=== PATIENT | female | born 1930 | race Caucasian/White ===

== ENCOUNTER 2017-12-27 11:10 | Inpatient (IN) | payer OTHER ==
[~2017-12-27] VITALS: Ht 165.1 cm; Wt 70.3 kg
[~2017-12-27 11:10] MED LIST: CALCIUM 600 +1 EAC1; CENTRUM SILVER1 EAC1; COUMADIN 5 MG TA5 M1 PO; COUMADIN 5 MG TA5 MG PO; DULCOLAX5 MG PO; ELIQUIS5 MG PO; ENOXAPARIN80 MG/0.1 SUBQ; HYDROCHLOROTHIA25 M1; IRON325 PO; KLOR-CON 1010 MEQ PO; LISINOPRIL40 MG; LOPERAMIDE 2 MG2 M1 PO; MELATONIN5 M1 PO; MILK OF MA2400 MG/10 PO; MIRALAX17 GM PO; MYLANTA PO; OXYGEN MISCELL; PHENERGAN 25 MG25 M1 PO; PRINIVIL40 MG PO; SENNA8.6 MG PO; TYLENOL325 MG PO; VALACYCLOVIR1000 MG PO; VITAMIN A & D113 G1; VITAMIN B-121000 MC3 PO; ZOFRAN ODT4 MG PO; [UNRECOGNIZED DRUG - OTHER]
[2017-12-27 11:37] LABS: ABSOLUTE BASOPHILS 0.2 thou/uL (0.0-0.2); ABSOLUTE EOSINOPHILS 0.1 thou/uL (0.0-0.7); ABSOLUTE LYMPHOCYTES 1.6 thou/uL (0.8-5.3); ABSOLUTE MONOCYTES 0.2 thou/uL (0.0-1.2); ABSOLUTE NEUTROPHILS 7.5 thou/uL (1.6-8.1); BASOPHILS 2.1 %; EOSINOPHILS 1.3 %; HEMATOCRIT 35.5 % (37.0-47.0); HEMOGLOBIN 10.9 gm/dL (12.0-15.0); LYMPHOCYTES 16.5 %; MCH 24.2 pg (26.0-34.0); MCHC 30.6 g/dL (28.0-37.0); MCV 79.1 fL (80.0-100.0); MONOCYTES 1.9 %; MPV 7.9 fl. (7.2-11.1); NUCLEATED RBCS 0 /100WBC; PLATELET COUNT* 612 thou/uL (150-400); POLYS 78.2 %; RBC 4.49 mil/uL (4.20-5.00); RDW-CV 20.4 % (10.5-14.5); WBC 9.6 thou/uL (4.0-11.0)
[2017-12-27 11:45] LABS: APTT 25.3 Seconds (25.0-31.3); INR 1.2; PROTIME 11.4 Seconds (9.20-11.50)
--- NOTE | 2017-12-27 11:50 | NUR ---
DR. UNDERWOOD IN TO SEE PT. PER DR. MOROCHO, CODE STROKE DC'D
[2017-12-27 11:53] LABS: ANION GAP 17 mmol/L (7-16); BUN 39 mg/dL (7-18); CALCIUM 9.2 mg/dL (8.5-10.1); CHLORIDE 100 mmol/L (98-107); CO2 18 mmol/L (21-32); CREATININE 2.2 mg/dL (0.6-1.3); GLUCOSE 263 mg/dL (70-99); POTASSIUM 5.3 mmol/L (3.5-5.1); SODIUM 135 mmol/L (136-145)
[2017-12-27 11:57] LABS: ALBUMIN 2.9 g/dL (3.4-5.0); ALKALINE PHOSPHATASE 99 U/L (46-116); SGOT 24 U/L (15-37); SGPT 22 U/L (30-65); TOTAL BILIRUBIN 0.2 mg/dL (<0.1-1.0); TOTAL PROTEIN 8.8 g/dL (6.4-8.2); TROPONIN-I LEVEL <0.06 ng/mL (<0.06)
[2017-12-27 12:07] LABS: HYPOCHROMASIA 2+; OVALOCYTES 1+; PLATELET ESTIMATE INCREASED
[2017-12-27 12:08] LABS: POIKILOCYTOSIS 1+
--- NOTE | 2017-12-27 12:40 | NUR ---
UNABLE TO INSERT URINARY CATH. WAITING FOR ARCHIVIST POLITICAL HISTORY TO BRING SMALLER CATHETER.
[2017-12-27 14:06] LABS: URINE BILIRUBIN NEGATIVE (Negative); URINE BLOOD NEGATIVE (Negative); URINE CLARITY CLEAR; URINE COLOR YELLOW; URINE GLUCOSE-RANDOM NEGATIVE (Negative); URINE KETONES NEGATIVE (Negative); URINE LEUKOCYTES-REFLEX NEGATIVE (Negative); URINE NITRITE-REFLEX NEGATIVE (Negative); URINE PROTEIN NEGATIVE (Negative); URINE SPECIFIC GRAVITY 1.025 (1.005-1.030); URINE UROBILINOGEN 0.2 E.U./dl (0.2-1.0)
[2017-12-27] MEDS ORDERED: SENEXON8.6 MG PO (14:46)
[2017-12-27] MEDS ORDERED: BACTRIM DS TAB1 EACH PO (14:47)
[2017-12-27 14:55] VITALS: BP 90/55
--- NOTE | 2017-12-27 15:00 | EKG ---
[place] [address] ELECTROCARDIOGRAM REPORT Name: NEALSHI Ying Room: [address] ADM IN [facility].#: [id number] Admission: 12/27/17 Attend Phys: Britton Valentine Discharge: Date of : 30 Report #: [id number] THIS REPORT FOR: //name// [facility] ED Test Date: 2017-12-27 Test Time: 11:38:53 Pat Name: SHI NEAL Department: Room: [facility] Gender: F Rn Procedures: Emily AVELAR : 1930 Requested By: Umair Hernandez Order Number: [id number] MD: Jovanny Graves Measurements Intervals [place] Rate: 115 P: 39 PA: 159 QRS: -40 QRSD: 85 T: 27 QT: 315 QTc: 436 Interpretive Statements Sinus tachycardia Left axis deviation Probable anteroseptal infarct, old Compared to ECG 09/26/2017 19:15:14 No significant changes Electronically Signed On 12-27-2017 14:59:55 CARD CLEANER by Jovanny Graves [email or web address] <ELECTRONICALLY SIGNED> By: Jovanny Graves MD, [facility] 12/27/17 1459 1138 [id number] Jovanny Graves MD, [facility] /EPI
[2017-12-27 15:44] LABS: CHOLESTEROL 216 mg/dL (<200); HDL CHOLESTEROL 49 mg/dL (>40); LDL CHOLESTEROL 141 mg/dL (<100); TC:HDL 4.4 Ratio (Not establshd); TRIGLYCERIDE 134 mg/dL (<150); VLDL 27 mg/dL (<40)
[2017-12-27 15:45] LABS: SERUM ASSESSMENT CLEAR
--- NOTE | 2017-12-27 16:38 | 2DMMODE ---
[place] [address] 2 D/M-MODE ECHOCARDIOGRAM Name: SHI NEAL Room: [address] IN [facility]#: [id number] Admission: 12/27/17 Attend Phys: Gurdeep Dodd Discharge: Date of : 30 Date of Service: 12/27/17 1637 Report #: [id number] THIS REPORT FOR: //name// APPROVED REPORT Study performed: 12/27/2017 15:37:29 EXAM: Comprehensive 2D, Doppler, and color-flow Echocardiogram Patient Location: In-Patient Room #: 224 Status: routine BSA: 1.81 HR: 95 bpm BP: 90/55 mmHg Rhythm: NSR Other Information Study Quality: Good Indications CVA/TIA Echo Enhancing Agent Indication: Rule out Shunt Agent(s) / Amount(s) Used: Agitated Saline 10 cc 2D Dimensions LVEF(%): 89.97 (>50%) IVSd: 15.97 (7-11mm) LVOT Diam: 19.43 (18-24mm) LVDd: 34.97 mm PWd: 10.97 (7-11mm) Ascending Ao: 33.80 (22-36mm) LVDs: 14.04 (25-40mm) Aortic Root: 27.64 mm Wilson's LVEF: 89.97 % Volumes Left Atrial Volume (Systole) LA ESV Index: 24.60 mL/m2 Aortic Valve AoV Peak Theodore.: 1.36 m/s AO Peak Gr.: 7.36 mmHg LVOT Max P.34 mmHg AO Mean Gr.: 3.96 mmHg LVOT Mean P.43 mmHg LVOT Max V: 1.26 m/s AO V2 VTI: 23.19 cm LVOT Mean V: 0.86 m/[place] [address] 2 D/M-MODE ECHOCARDIOGRAM Name: SHI NEAL Room: [address] IN .R.#: [id number] Admission: 12/27/17 Attend Phys: Gurdeep Dodd Discharge: Date of : 30 Date of Service: 12/27/17 1637 Report #: [id number] EUGENIO (VTI): 2.98 cm2 LVOT V1 VTI: 23.30 cm Mitral Valve E/A Ratio: 0.72 MV Decel. Time: 200.98 ms MV E Max Theodore.: 0.62 m/s MV PHT: 58.28 ms MVA (PHT): 3.77 cm2 TDI E/Lateral E': 10.33 E/Medial E': 8.86 Medial E' Theodore.: 0.07 m/s Lateral E' Theodore.: 0.06 m/s Pulmonary Valve PV Peak Theodore.: 0.83 m/s PV Peak Gr.: 2.74 mmHg Tricuspid Valve TR Peak Gr.: 22.49 mmHg RVSP: 27.00 mmHg Left Ventricle The left ventricle is normal size. There is normal LV segmental wall motion. Mild basal septal hypertrophy is present. Left ventricular systolic function is normal. LVEF is 65-70%. Grade I - abnormal relaxation pattern. Right Ventricle The right ventricle is normal size. The right ventricular systolic function is normal. Atria Left atrium is mildly dilated. Interatrial septum is intact without evidence of ASD or PFO. The right atrium size is normal. Aortic Valve The Aortic valve is mildly sclerotic. No aortic regurgitation is present. There is no aortic valvular stenosis. Mitral Valve The mitral valve is normal in structure. Trace mitral regurgitation. No evidence of mitral valve stenosis. Tricuspid Valve The tricuspid valve is normal in structure. Trace tricuspid regurgitation. The RVSP is ___27____ [place] [address] 2 D/M-MODE ECHOCARDIOGRAM Name: SHI NEAL Room: [address] IN M.R.#: [id number] Admission: 12/27/17 Attend Phys: Gurdeep Dodd Discharge: Date of : 30 Date of Service: 12/27/17 1637 Report #: [id number] Pulmonic Valve The pulmonary valve is normal in structure. There is no pulmonic valvular regurgitation. Great Vessels The aortic root is normal in size. IVC is normal in size and collapses with >50% inspiration Pericardium There is no pericardial effusion. <Conclusion> Normal echocardiogram. The left ventricle is normal size. Mild basal septal hypertrophy is present. Left ventricular systolic function is normal. LVEF is 65-70%. Grade I - abnormal relaxation pattern. Left atrium is mildly dilated. The Aortic valve is mildly sclerotic. Trace tricuspid regurgitation. The RVSP is ___27____ mmHg. Interatrial septum is intact without evidence of ASD or PFO. <ELECTRONICALLY SIGNED> By: Elvin Saunders MD, FACC 12/27/17 1637 [id number] [phone] Elvin Saunders MD, FACC /INF
[2017-12-27] MEDS ORDERED: SANTYL OINTMENT30 G1 TP (18:04)
[2017-12-27 20:00] VITALS: BP 105/43
[2017-12-28] VITALS: BP 100/52
[2017-12-28 04:00] VITALS: BP 123/45
--- NOTE | 2017-12-28 04:08 | NUR ---
ASSUMED PT CARE AT 1930, PT IS A&O TO SELF PT IS MOSTLY NON VERBAL BUT WILL ANSWER TO YES AND NO QUESTIONS. PT IS TRACING NSR ON THE MONITOR, PT IS ON 4L NC PT HAS IVF INFUSING PER MAR. PT HAS A LOVE TO DD, DRAINING YELLOW URINE. PT SLEPT WELL THORUGHOUT THE NIGHT, PT IS INCONTINENT OF STOOL. HAD 2 BM THIS SHIFT. PT HAS SEVERAL WOUNDS THAT WERE DRESSED BY THE DAY RN. PT IS NOT IN ANY APPARENT PAIN. BED IN LOW POSITION, CALL LIGHT IN REACH, BED ALARM ON, YELLOW ARM BAND AND SOCKS IN PLACE. HOURLY ROUNDING COMPLETED FOR PT SAFETY.
[2017-12-28 08:00] VITALS: BP 121/67
[2017-12-28 10:08] LABS: MAGNESIUM 2.2 mg/dL (1.8-2.4); PHOSPHORUS* 3.6 mg/dL (2.5-4.9)
[2017-12-28 12:02] VITALS: BP 120/61
--- NOTE | 2017-12-28 13:41 | NUR ---
Pt was sound asleep when CM went to assess, will f/u later
--- NOTE | 2017-12-28 15:40 | NUR ---
CM was able to speak with Holli from [facility]. Pt is a LTC resident at [facility] and they can accept Pt back at [facility]. Son is supportive and involved in POC. Pt is normally A&Ox1, but can answer simple questions.
[2017-12-28 16:00] VITALS: BP 141/57
--- NOTE | 2017-12-28 16:12 | NUR ---
WOUND CARE NOTE: CONSULT RECEIVED FOR ESCHAR BOGGY HEELS LEFT TOP OF FOOT WOUND. PATIENT PRESENTS WITH MULTIPLE AREAS OF BREAKDOWN TO HER FEET. RIGHT HEEL: UNSTAGEBALE PRESSURE ULCER MEASURING 3.5X4X0.1. 95% UNSTABLE BLACK, DRY ESCHAR; 5% YELLOW, MOIST TISSUE. SETH-WOUND WITH REDNESS. HEEL IS BOGGY. CLEANSED WOUND WITH WOUND CLEANSER, PATTED DRY. APPLIED OPTIFOAM AG AND SECURED WITH KERLIX. LEFT HEEL: DEEP TISSUE INJURY WITH BLISTERING MEASURING 2.1X5. MAROON DISCOLORED TISSUE. SETH-WOUND WITH ERYTHEMA. CLEANSED WITH WOUND CLEANSER, PATTED DRY. NO EVIDENCE OF DRAINAGE NOTED. PAINTED WITH BETADINE AND ALLOWED TO DRY. LEFT FOOT, DORSAL ASPECT: STAGE 4 PRESSURE ULCER MEASURING 3.5X6X0.2. 50% RED, MOIST, NON-GRANULAR TISSUE; 50% YELLOW SLOUGH TISSUE. TENDON IS PRESENT IN CENTER OF WOUND BED. SETH-WOUND WITH ERYTHEMA. CLEANSED WOUND WITH WOUND CLEANSER, PATTED DRY. APPLIED AQUACEL AG AND COVERED WITH ABD. SECURED WITH KERLIX. LEFT 1ST METATARSAL HEAD: DEEP TISSUE INJURY MEASURING 0.5X1.5; PURPLE DISCOLORATION. SETH-WOUND INTACT. AREA WAS CLEANSED WITH WOUND CLEANSER, PATTED DRY. PAINTED WITH BETADINE. PATIENT INCONTINENT OF STOOL, ASSISTED WITH CLEANSING AND PLACING NEW CHUX. CONTUSIONS PRESENT TO LEFT BUTTOCK-APPLIED BARRIER OINTMENT. EDUCATED PATIENT ON IMPORTANCE OF KEEPING HEELS UP OFF BED, BUT PATIENT DOES NOT RESPOND OR VERBALIZE UNDERSTANDING. RECOMMEND KEEP HEELS OFF BED TURN Q2 HOURS LIMIT LAYERS OF LINEN UNDER PATIENT LIMIT HOB <30 DEGREES IF SHE CAN TOLERATE CONSULT WOUND PHYSICIAN FOLLOW UP IN WOUND CENTER UPON DISCHARGE
[2017-12-28 16:29] LABS: HEMATOCRIT 23.9 % (37.0-47.0); MCH 24.1 pg (26.0-34.0); MCHC 31.2 g/dL (28.0-37.0); MCV 77.2 fL (80.0-100.0); MPV 7.6 fl. (7.2-11.1); RBC 3.09 mil/uL (4.20-5.00); RDW-CV 20.4 % (10.5-14.5); WBC 18.2 thou/uL (4.0-11.0)
[2017-12-28 16:40] LABS: ALBUMIN 2.1 g/dL (3.4-5.0); CALCIUM 7.8 mg/dL (8.5-10.1); CREATININE 1.3 mg/dL (0.6-1.3); POTASSIUM 5.2 mmol/L (3.5-5.1); TOTAL BILIRUBIN 0.2 mg/dL (<0.1-1.0); TOTAL PROTEIN 6.2 g/dL (6.4-8.2)
[2017-12-28 17:02] LABS: HEMOGLOBIN 7.4 gm/dL (12.0-15.0)
--- NOTE | 2017-12-28 18:53 | NUR ---
PT LAYING IN BED T/O DAY WOUNDS CHANGED BY WOUND NURSE TODAY DR. MCNAMARA CONSULTED NS DECREASED TO 40ML/H HGB DOWN TO 7.4 DR. UNDERWOOD NOTIFIED AND WILL RECHECK TOMORROW PT STILL ONLY ALERT AND ORIENTED X1 CAN ANSWER YES OR NO QUESTIONS BUT CANNOT SAY A SENTENCE AND MAKE SENSE. IT IS VERY GARBLED. Q2 TURN CONTINUES, DENIES PAIN. FC DRAINING DARK YELLOW URINE LS STILL COARSE WITH WHEEZES BUT NOT LOUD OF BREATHING YESTERDAY
[2017-12-28 19:27] LABS: HCO3 16.9 mmol/L (22.0-26.0); PCO2 28.1 mmHg (35.0-45.0); PO2 107.5 mmHg (75.0-100.0); pH 7.398 (7.340-7.450)
[2017-12-28 20:00] VITALS: BP 105/67
[2017-12-29] VITALS (7 sets, daily range): BP systolic 124–157; BP diastolic 59–76
--- NOTE | 2017-12-29 05:20 | NUR ---
PT CARE ASSUMED AFTER REPORT. ASSESSMENT COMPLETE. SR/ST/1ST DEGREE ON MONITOR. TOTAL CARE. LOVE TO DD. IVF INFUSING. FALL PRECAUTIONS IN PLACE INCLUDING BED ALARM. PT SPEECH GARBLED. NPO PER ORDER. NO S/S OD PAIN. SLOW TO PROGRESS TOWARDS GOALS.
[2017-12-29 05:55] LABS: HEMATOCRIT 24.4 % (37.0-47.0); HEMOGLOBIN 7.7 gm/dL (12.0-15.0); MCH 24.2 pg (26.0-34.0); MCHC 31.4 g/dL (28.0-37.0); MCV 76.9 fL (80.0-100.0); PLATELET COUNT* 355 thou/uL (150-400); RBC 3.17 mil/uL (4.20-5.00); RDW-CV 20.2 % (10.5-14.5); WBC 12.7 thou/uL (4.0-11.0)
[2017-12-29 06:44] LABS: ALBUMIN 2.1 g/dL (3.4-5.0); CALCIUM 8.2 mg/dL (8.5-10.1); TOTAL BILIRUBIN 0.2 mg/dL (<0.1-1.0); TOTAL PROTEIN 6.4 g/dL (6.4-8.2)
[2017-12-29 12:51] LABS: ABSOLUTE BASOPHILS 0.2 thou/uL (0.0-0.2); ABSOLUTE EOSINOPHILS 0.1 thou/uL (0.0-0.7); ABSOLUTE LYMPHOCYTES 1.5 thou/uL (0.8-5.3); ABSOLUTE MONOCYTES 0.6 thou/uL (0.0-1.2); ABSOLUTE NEUTROPHILS 10.4 thou/uL (1.6-8.1); BASOPHILS 1.2 %; EOSINOPHILS 0.4 %; MONOCYTES 4.8 %; POLYS 81.6 %
--- NOTE | 2017-12-29 17:23 | NUR ---
PATIENT RESTING IN BED. PATIENT HAS BEEN NON-VERBAL TODAY. PATIENT DOES NOT APPEAR TO BE IN PAIN. PATIENT HAS BEEN REPOSITIONED IN BED. PATIENT HAS PRESSURE REDUCTION BOOTS ON TO BILATERAL FEET. DR WONG DRESSED WOUNDS. CULTURE SENT TO LAB OF LEFT FOOT. PATIENT HAS BEEN TOLERATING PUREED DIET WITH NECTAR THISCK LIQUIDS. BED ALARM IS ON. WILL CONTINUE TO MONITOR.
[2017-12-30] VITALS: BP 176/79
[2017-12-30 04:00] VITALS: BP 155/62
--- NOTE | 2017-12-30 05:15 | NUR ---
PT CARE ASSUMED AFTER REPORT. ASSESSMENT COMPLETE. SR ON MONITOR. IVF INFUSING. O2 4L NC. NECTAR THICKENED LIQUIDS PROVIDED. LOVE TO DD. FALL PRECAUTIONS IN PLACE INCLUDING BED ALARM. ABLE TO UNDERSTAND SPEECH AT TIMES. SLOW TO PROGRESS TOWARDS GOALS.
[2017-12-30 06:04] LABS: CALCIUM 8.3 mg/dL (8.5-10.1); CREATININE 0.9 mg/dL (0.6-1.3); POTASSIUM 4.5 mmol/L (3.5-5.1)
[2017-12-30 08:02] VITALS: BP 174/73
--- NOTE | 2017-12-30 09:22 | NUR ---
ASSUMED CARE OF PT THIS AM AROUND 07- DIRECTOR OF SEARCH ENGINE MARKETING IN PLACE ORDERED, TRACING SR- UPON ASSESSMENT PT NOTED TO BE RESTING IN BED WITH EYES CLOSED- PT A&O TO SELF, WITH NOTED CONFUSION- INCONTINENT OF BOWEL, LOVE IN PLACE D/D CLEAR YELLOW URINE R/T ARF- BEDREST WITH Q 2HOUR TURNS IN PLACE- LCTA, DIMINISHED IN BASES, RESP EVEN AND UN-LABORED- VSS, O2 SAT 97% ON 4L VIA NC- ABDOMEN SOFT/ROUND/NON-TENDER, BS X4 QUADS- LAST BM REPORTED 12/29/17- PUREE DIET WITH NECTAR LIQUIDS IN PLACE ORDERED, PT NOTED TO BE FEEDED WITH MEALS- DRESSING NOTED TO JACEY HEELS, BOOTS IN PLACE INDICATED- CHEST X-RAY COMPLETED THIS AM ORDERED, RESULTS NOTED WITH CARDIOMEGALY AND HIATAL HERNIA- IV NOTED TO RIGHT FA INTACT WITH IVF INFUSING ORDERED, IV ABT GIVEN PRESCIBED THIS AM- PT DENIES ANY PAIN AT THIS TIME- CALL LIGHT AND PERSONAL BELONGINGS WITH IN REACH- HOURLY ROUNDS IN PLACE R/T SAFETY/NEEDS- ALL NEEDS MET AT THIS TIME-WCTM
[2017-12-30 12:26] VITALS: BP 137/61
--- NOTE | 2017-12-30 14:32 | NUR ---
PT MIGUEL RESTING IN BED- PANEL EDGE PAINTER IN PLACE ORDERED, TRACING SR- IV TO RIGHT FA INTACT WITH IVF INFUSING ORDERED- ZITHROMAX NOTED TO BE D/C'D TODAY- RIDGITITY NOTED TO UPPER EXTREMITITES, SINEMENT STARTED PER WITH NEUROLOGY TODAY TO BE FURTHER EVALUATED FOR EFFECTIVENESS- FAIR PO INTAKE NOTED WITH MEALS WITH ASSISTANCE- ONE WORD EXPRESSIONS NOTED AT TIMES, MOSTLY STARES- BS MONITORED WITH SSI GIVEN PRESCRIBED- DRESSINGS TO BLE CHANGED PER THIS SHIFT- WAS NOT NOTIFIED PRIOR TO DRESSING CHANGE TO BE ABLE TO EVAL AND OBTAIN PICTURES THIS SHIFT- PICS OBTAINED OF RIGHT ELBOW, RIGHT HAND, AND LEFT BUTTOCKS INDICATED- DRESSINGS TO BL FEET C/D/I, NO VISIBLE DRAINGE OR NEED TO CHANGE THIS SHIFT- HEEL PROTECTOR BOOTS IN PLACEA INDICATED- Q [address] INDICATED- NO VISIBLE SIGNS OF PAIN AT THIS TIME- ALL NEEDS MET AT THIS TIME-WCTM
[2017-12-30 16:14] VITALS: BP 153/71
[2017-12-30 20:00] VITALS: BP 133/64
[2017-12-31] VITALS (7 sets, daily range): BP systolic 149–172; BP diastolic 56–92
--- NOTE | 2017-12-31 03:57 | NUR ---
PT ALERT TO SELF ONLY, PT IS NONVERBAL AT TIMES. PT IS Q2 TURNS. DAILY DRESSING CHANGES. SR ON THE MONITOR. 4L O2. FLUIDS AT 40ML/H. BEDREST ONLY. PT HAS LOVE FOR RENAL FAILURE. PT IS INCONTENT OF BOWEL. PT IS FEEDER. VITALS WNL. FALL PRECAUTIONS IN PLACE. HOULRY ROUNDING FOR SAFETY.
[2017-12-31 04:42] LABS: HEMATOCRIT 27.4 % (37.0-47.0); HEMOGLOBIN 8.8 gm/dL (12.0-15.0); MCH 24.4 pg (26.0-34.0); MCV 76.2 fL (80.0-100.0); MPV 8.2 fl. (7.2-11.1); RBC 3.6 mil/uL (4.20-5.00); RDW-CV 19.8 % (10.5-14.5); WBC 7.9 thou/uL (4.0-11.0)
[2017-12-31 05:16] LABS: CALCIUM 8.1 mg/dL (8.5-10.1); CREATININE 0.8 mg/dL (0.6-1.3); POTASSIUM 4.1 mmol/L (3.5-5.1)
--- NOTE | 2017-12-31 07:53 | CON ---
[address] [address] CONSULTATION Name: NEALEMILYSHI H Room: [address] IN M.R.#: [id number] Admission: 12/27/17 Attend Phys: Britton Valentine Discharge: Date of : 30 Report #: [id number] THIS REPORT FOR: //name// CC: Ced Dodd DATE OF SERVICE: 12/28/2017 ATTENDING PHYSICIAN: Gurdeep Dodd DO. REASON FOR EVALUATION: Encephalopathy that is complicated by some speech disturbances and subsequently developed a possible code with aspiration. She was admitted to the hospital. She is really unable to give any sort of history. Chest x-ray raised a question of some infiltrates. She has generally been afebrile. She is on supplemental oxygen. ALLERGIES: PENICILLINS AND TETANUS. CURRENT MEDICATIONS: Include melatonin, azithromycin, loperamide, ceftriaxone, insulin sliding scale, p.r.n. analgesics and antiemetics. PAST MEDICAL HISTORY: History of hypertension, primary pulmonary hypertension, history of some dementia, chronic microcytic anemia and history of lower extremity DVTs. SOCIAL HISTORY: Nonsmoker and no ethanol. FAMILY HISTORY: Noncontributory. REVIEW OF SYSTEMS: Not obtainable. PHYSICAL EXAMINATION: GENERAL: She does awaken. There are some utterances although it is really not understandable: She appears chronically ill and undernourished. VITAL SIGNS: Temperature 98.3, pulse 86, respirations 21 and blood pressure 121/67. SKIN: Warm and dry. I do not appreciate any rashes. NECK: Apparently supple. LUNGS: Few scattered coarse breath sounds. HEART: Regular and soft systolic murmur. ABDOMEN: Soft and obese. There are no overt peritoneal signs. GENITOURINARY: Deferred. RECTAL: Deferred. LABORATORY DATA: Carotids: She has mild to moderate bilateral plaquing without significant stenosis. MRI of the head shows moderate to severe generalized [facility] [address] [place] [address] CONSULTATION Name: SHI NEAL Room: [address] IN [facility]#: [id number] Admission: 12/27/17 Attend Phys: Britton Valentine Discharge: Date of : 30 Report #: [id number] parenchymal volume loss with moderate to severe chronic small vessel ischemic changes. No evidence of acute or recent infarct. Prealbumin 13.1. Amylase 55 and lipase 106. ProBNP 983. D-dimer elevated at 2.18. Blood cultures sterile thus far. Lactic acid of 5.1 and it is actually down from 7.6. Sed rate of 75. TSH of 8.715, which is elevated. Free T4 1.16. Urinalysis is unremarkable. Chest x-ray: Left basilar infiltrate versus scarring. CBC: White count of 9.6, H and H 10.9 and 35.5 and platelets of 612. Electrolytes: Sodium 135, potassium 5.3, chloride 100, bicarbonate is 18, BUN and creatinine 39 and 2.2 and glucose of 263. Total protein of 8.8 with an albumin of 2.9. Fibrinogen 522. PT 11.4 and INR of 1.2. ASSESSMENT: Possible transient ischemic attack complicated by aspiration. She remains very tenuous at this point, obviously some of her situation is chronic. We will try to reverse the acute, possibly reversible. Continue empiric antimicrobial therapy. Would not expect any forthcoming sputum. We will see how she does clinically. Hopefully, return to her baseline. <ELECTRONICALLY SIGNED> By: Pepe Farris MD 12/31/17 0753 1154 24Joserge Farris MD /nt
[2017-12-31 09:47] LABS: POC CA IONIZED 4.4 mg/dL (4.5-5.3); POC CREATININE 2.1 mg/dL (0.6-1.3); POC HEMOGLOBIN 12.9 g/dL (12.0-17.0); POC POTASSIUM 6.3 mmol/L (3.5-4.9)
--- NOTE | 2017-12-31 11:26 | NUR ---
Following through dc. Provided update to Gi at [facility], they continue to be able to accept Pt back at dc. Pt now a DNR. Following for dc needs.
--- NOTE | 2017-12-31 14:00 | NUR ---
ASSUMED CARE OF PT FROM GREYSON CONRTERAS. AGREE WITH HER ASSESSMENT. PT REMAINS ON ISOLATION. SHE IS SR ON THE CARDIAC MONITER. SHE IS FALL RISK AND ON FACILITY PROTOCOL. PT IS ON 2HR TURN AND REPOSITION. CLEANED AND REDRESSED PTS WOUNDS TO LBLE'S. .
[2017-12-31 16:09] LABS: ABSOLUTE BASOPHILS 0.1 thou/uL (0.0-0.2); ABSOLUTE EOSINOPHILS 0.2 thou/uL (0.0-0.7); ABSOLUTE LYMPHOCYTES 1.3 thou/uL (0.8-5.3); ABSOLUTE MONOCYTES 0.5 thou/uL (0.0-1.2); ABSOLUTE NEUTROPHILS 6.2 thou/uL (1.6-8.1); BASOPHILS 0.9 %; EOSINOPHILS 2.6 %; HEMATOCRIT 26.8 % (37.0-47.0); HEMOGLOBIN 8.6 gm/dL (12.0-15.0); LYMPHOCYTES 15.6 %; MCH 24.8 pg (26.0-34.0); MCHC 32.2 g/dL (28.0-37.0); MCV 77.2 fL (80.0-100.0); MONOCYTES 6.3 %; MPV 7.8 fl. (7.2-11.1); NUCLEATED RBCS 0 /100WBC; PLATELET COUNT* 343 thou/uL (150-400); POLYS 74.6 %; RBC 3.48 mil/uL (4.20-5.00); RDW-CV 18.8 % (10.5-14.5); WBC 8.3 thou/uL (4.0-11.0)
[2017-12-31 16:33] LABS: ALBUMIN 2.1 g/dL (3.4-5.0); CALCIUM 7.8 mg/dL (8.5-10.1); CREATININE 0.9 mg/dL (0.6-1.3); TOTAL BILIRUBIN 0.1 mg/dL (<0.1-1.0); TOTAL PROTEIN 6.4 g/dL (6.4-8.2)
--- NOTE | 2017-12-31 17:24 | NUR ---
CALLED PHARMACY SPOKE WITH ANNI REGARDING INSULLIN FOR PT. HE WILL GET UP HERE. PT HAS RESTED IN HER ROOM THIS SHIFT. SON CAME BY TO VISIT. CLEANED WOUNDS AND APPLIED NEW DRESSING. PT RESPONDS IN CONVERSATION BY REPEATING BACK WHAT I HAVE SAID. PT CONT ON ISOLATION AND FALL RISK PER FACILITY PROTOCOLS. PT HAS CONT ON Q2 HR TURN AND REPO. PT REMAINS ON 4L OF 02. HOURLY ROUNDING COMPLETE.
[2018-01-01 03:35] VITALS: BP 181/75
--- NOTE | 2018-01-01 04:00 | NUR ---
ASSUMED PT CARE AT 1930, PT IS AWAKE, PT REMAINS NON VERBAL THROUGHOUT THIS SHIFT, SHE WILL MOAN OR GRUNT WITH REPOSITIONING. PT IS TRACING NSR ON THE MONITOR, ON 4L NC SATTING MID TO HIGH 90'S. IVF INFUSING PER MAR. PT HAS A LOVE TO DD, DRIANING YELLOW URINE. PT HAS SEVERAL WOUNDS, THIS RN REDRESSED WOUNDS, PLACED HEELS IN HELLMEDIX BOOTS. PT IT TURNED AND REPOSITIONED EVER 2 HOURS TO PREVENT FURTHER SKIN BREAKDOWN. PT IS ON NECTAR THICKENED LIQUIDS WITH NO APPARENT ISSUE. BED IN LOW POSITION, CALL LIGHT IN REACH, BED ALARM ON, YELLOW ARM BAND AND SOCKS IN PLACE. HOURLY ROUNDING COMPLETED FOR PT SAFETY.
[2018-01-01 08:00] VITALS: BP 178/78
--- NOTE | 2018-01-01 12:08 | NUR ---
ASSUMED CARE OF PT AT 0730. PT RESTING IN BED. PT ALERT AND AWAKE, NONVERBAL. PT MOANS AND GROANS WHEN BEING REPOSITIONED. DEMENTIA NOTED. PT IN CONTACT ISOLATION FOR MRSA IN WOUNDS. PT TRACING SR ON THE TMH TEACHER. EDEMA NOTED THROUGHOUT. ON 4L NC SAT 98%. PT DOES NOT APPEAR TO BE IN ANY PAIN AT REST. PT DOES NOT APPEAR TO BE SHORT OF BREATH. UNKNOWN LAST BM OF PT. OLVE TO DEPENDENT DRAINAGE WITH CLEAR YELLOW URINE. IVF TO RIGHT FA. MULTIPLE WOUNDS NOTED. REFER TO CHARTING. DRESSINGS CHANGED THIS AM AT APPROXIMATELY 0100 BY NOC SHIFT RN. PRAFO BOOTS IN PLACE. PT REPOSITIONED EVERY 2 HOURS FOR COMFORT. PT VERY STIFF, CONTRACTURES NOTED. PT REQUIRES TO BE FED ALL MEALS. PT ON PUREED DIET WITH NECTAR THICKENED LIQUIDS. AM ASSESSMENT CHARTED. MEDICATIONS PER MAR IN NECTAR THICKENED LIQUIDS. PT REPOSITIONED EVERY 2 HOURS FOR COMFORT. HOURLY ROUNDING OBSERVED. BED IN LOW POSITION. BED ALARM IN PLACE. FALL PRECAUTIONS IN PLACE. CALL LIGHT WITHIN REACH. WILL CONTINUE PLAN OF CARE.
[2018-01-01 12:11] VITALS: BP 173/65
[2018-01-01 17:00] VITALS: BP 178/62
--- NOTE | 2018-01-01 18:21 | NUR ---
NO ACUTE CHANGES THROUGHOUT SHIFT. REFER TO CHARTING. SON HERE TO VISIT PT. DR PRESLEY NOTIFIED. DR PRESLEY SPOKE WITH PT ON TELEPHONE FOR A GOOD AMOUNT OF TIME. PT CONTINUES TO BE ALERT AND AWAKE BUT POORLY RESPONSIVE, DOES NOT FOLLOW COMMANDS. PT CONTINUES TO TRACE SR ON THE SUPERVISOR LACE TEARING. ON 4L NC SAT UPPER 90'S. PT DOES NOT APPEAR TO BE IN ANY PAIN OR SHORT OF BREATH. PT CONTINUES TO BE IN CONTACT ISOLATION FOR MRSA IN WOUNDS. LOVE TO DEPENDENT DRAINAGE. IVF. VASCULAR HERE TO SEE PT TODAY. NO PLANS FOR INTERVENTION AT THIS TIME DUE TO PT STATUS. PT APPETITE IS GOOD. PT IS A FEEDER-PUREED DIET WITH NECTAR THICKENED LIQUIDS. MEDICATIONS PER MAR WITH NECTAR THICKENED LIQUIDS. PT REPOSITIONED EVERY 2 HOURS FOR COMFORT. PT MOANS AND GROANS WHEN REPOSITIONED. HOURLY ROUNDING OBSERVED. BED IN LOW POSITION. BED ALARM IN PLACE. FALL PRECAUTIONS IN PLACE. CALL LIGHT WITHIN REACH. WILL CONTINUE PLAN OF CARE.
[2018-01-01 20:00] VITALS: BP 150/66
[2018-01-02] VITALS: BP 173/59
--- NOTE | 2018-01-02 02:16 | NUR ---
PT ALERT NON VERBLE THIS SHIFT. PT OPENS MOUTH FOR A DRINK. CONTRACTED. TELEMETRY SHOWS SR. DRGS D/I. NS AT 40MLS/HR. LOVE WITH CLEAR YELLOW. WILL CONTINUE TO MONITOR.
--- NOTE | 2018-01-02 03:46 | NUR ---
LEFT HEEL AND L METATARSAL WOUND CLEANED WITH WOUND FERRY OPERATOR DRYED OPTIFOAM AND KERLEX WRAPPED.
[2018-01-02 04:00] VITALS: BP 154/65
[2018-01-02 05:23] LABS: ABSOLUTE BASOPHILS 0.1 thou/uL (0.0-0.2); ABSOLUTE EOSINOPHILS 0.3 thou/uL (0.0-0.7); ABSOLUTE LYMPHOCYTES 1.8 thou/uL (0.8-5.3); ABSOLUTE MONOCYTES 0.6 thou/uL (0.0-1.2); ABSOLUTE NEUTROPHILS 4.8 thou/uL (1.6-8.1); BASOPHILS 0.9 %; EOSINOPHILS 4.4 %; HEMATOCRIT 26.3 % (37.0-47.0); HEMOGLOBIN 8.5 gm/dL (12.0-15.0); LYMPHOCYTES 23.2 %; MCH 24.6 pg (26.0-34.0); MCHC 32.5 g/dL (28.0-37.0); MCV 75.6 fL (80.0-100.0); MONOCYTES 7.5 %; MPV 7.8 fl. (7.2-11.1); NUCLEATED RBCS 0 /100WBC; PLATELET COUNT* 331 thou/uL (150-400); RBC 3.47 mil/uL (4.20-5.00); RDW-CV 19.4 % (10.5-14.5); WBC 7.6 thou/uL (4.0-11.0)
[2018-01-02 05:56] LABS: CALCIUM 7.7 mg/dL (8.5-10.1); CREATININE 0.7 mg/dL (0.6-1.3); TOTAL BILIRUBIN 0.2 mg/dL (<0.1-1.0); TOTAL PROTEIN 5.6 g/dL (6.4-8.2)
[2018-01-02 07:30] VITALS: BP 174/68
[2018-01-02 12:00] VITALS: BP 142/60
--- NOTE | 2018-01-02 13:26 | CON ---
[address] [address] CONSULTATION Name: SHI NEAL Room: [address] IN M.R.#: [id number] Admission: 12/27/17 Attend Phys: Britton Valentine Discharge: Date of : 30 Report #: [id number] THIS REPORT FOR: //name// CC: Ced Dodd DATE OF SERVICE: 12/30/2017 CHIEF COMPLAINT: Followup of bilateral heel ulcerations and ulceration to the left anterior ankle with cellulitis diagnosed with pneumonia and is being treated for pneumonia, left ankle wound culture is pending. She is on p.o. azithromycin and parenteral ceftriaxone with no side effects. She is noncommunicative. LABORATORY DATA: WBC 12.7, RBC 3.17, hemoglobin 7.7, hematocrit 24.4, platelets 355, BUN 21, creatinine 0.9, glucose 82. PHYSICAL EXAMINATION: I changed the left foot bandage, the ulceration to the left anterior ankle is relatively unchanged with slight decrease in inflammation from yesterday. No exposed bone, tendon or joint, mostly red granulation with a few focal areas of yellow fibrosis. There is active bleeding upon gentle touch, which stopped with pressure. Moderate periwound inflammation with some excoriation, but somewhat decreased. Faintly palpable dorsalis pedis and posterior tibial pulses. PLAN: Discussed with Dr. Nunes, Infectious Disease. We will order noninvasive arterial Doppler study. Continue localized wound care with topical Aquacel Ag, foam ABD, Kerlix to left extremity. Continue offloading in a PRAFO boots. We will follow during hospitalization. <ELECTRONICALLY SIGNED> By: Lauro Nix DPM 01/02/18 1326 1210 [id number] Nix DPM /nt
--- NOTE | 2018-01-02 13:26 | CON ---
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 The heel cultures growing diphtheroids and presumptive MRSA. The ankle culture is pending. Her ceftriaxone order was discontinued. This noninvasive arterial Doppler studies show normal waveforms to the left thigh with dampening waveforms to the left calf and distal. Left NINO was 0.54, the right was 0.72. PHYSICAL EXAMINATION: Her bandage were changed earlier today, thus I did not remove them. They were dry, clean and intact without bleed through. The patient was resting comfortably. PLAN: Supportive wound care, antibiotics per Infectious Disease. Vascular Surgery was consulted to assess distal arterial perfusion. <ELECTRONICALLY SIGNED> By: Lauro Nix DPM 01/02/18 1326 1411 [id number] Nix DPM /nt
--- NOTE | 2018-01-02 13:26 | CON ---
[address] [address] CONSULTATION Name: SHI NEAL Room: [address] IN .R.#: [id number] Admission: 12/27/17 Attend Phys: Britton Valentine Discharge: Date of : 30 Report #: [id number] THIS REPORT FOR: //name// CC: Ced Dodd DATE OF SERVICE: 12/29/2017 CHIEF COMPLAINT AND HISTORY OF PRESENT ILLNESS: Podiatric consultation for an 87-year-old female with bilateral heel wounds and left anterior ankle wound. She was admitted to the hospital 2 days ago for mental status changes with medical history significant for dementia, hypertension, bilateral leg deep venous thrombosis and chronic anemia. Initially, her mental status change was thought to be due to stroke, but now sepsis is more likely. She has a wound to the left anterior ankle with advanced cellulitis. Her blood cultures are negative, her foot and ankle culture results are pending. She is currently on azithromycin and parenteral ceftriaxone with no adverse reaction. She is unable to communicate in her present state. She is alert, but obviously has mental status changes and is unable to communicate or respond to simple commands. She was evaluated by the wound nurse yesterday, all wounds were photographed and documented. The wounds were dressed with Aquacel Ag and covered with foam and Kerlix roll gauze. She is offloading her heels in pillow PRAFO boots. She remains nonambulatory. LABORATORY DATA: WBC 12.7, RBC 3.17, hemoglobin 7.7, hematocrit 24.4, platelets 355. BUN 34, creatinine 1.0, glucose 68. Urinalysis negative. Respiratory culture pending. Chest x-ray has minimal strand-like scarring/atelectasis to left lung base with no pleural effusions or pneumothorax. Carotid ultrasound, mild to moderate atherosclerotic plaquing without significant stenosis. CT head shows no acute process with moderate white matter disease suggestive of small vessel ischemic changes. PHYSICAL EXAMINATION: The left anterior ankle has a large full thickness ulceration that measures roughly 4.0 x 4.0 x 0.2 cm. There is a red granular base with focal areas of yellow fibrotic tissue. The area is swollen and indurated with surrounding inflammation consistent with cellulitis. No exposed bone, tendon or joint. No undermining, no underlying fluctuance or crepitation. There is a left posterior heel ulceration with intact skin, but purpura indicative of subdermal tissue breakdown. There is no drainage, and the skin has a dry roof of thickened skin with a brownish-purple discoloration. The right heel has similar appearance with a brown-black and purple dry eschar with no drainage. She has faintly palpable dorsalis pedis and posterior tibial pulses bilaterally. No pallor or cyanosis. Negative Homans or Garza sign in either leg. No popliteal adenopathy, bilateral onychomycosis [place] [address] CONSULTATION Name: NEALSHI Room: [address] IN ..#: [id number] Admission: 12/27/17 Attend Phys: Britton Valentine Discharge: Date of : 30 Report #: [id number] IMPRESSION: Ulceration with cellulitis to left anterior ankle, bilateral heel ulcerations, peripheral vascular disease, diabetes mellitus type 2. PLAN: Excisional surgical debridement of the left anterior ankle wound with scissors and forceps to excise subcutaneous tissue and fibrotic tissue from the wound bed. Pinpoint bleeding stopped with pressure. The wound was cleansed and dressed with Aquacel Ag, foam, roll gauze and PRAFO boot. Both heel wounds were also cleansed, but no debridement was performed to them. The debridement to the ankle was a surgical excisional debridement. Both feet were rewrapped and placed in the PRAFO boots for offloading. I will confirm with laboratory that they received the patient's wound cultures from yesterday. <ELECTRONICALLY SIGNED> By: Lauro Nix DPM 01/02/18 1326 [id number] Nix DPM /lisa
[2018-01-02 16:00] VITALS: BP 154/74
--- NOTE | 2018-01-02 16:19 | NUR ---
JNIG SPOKE TO DR UNDERWOOD AND HE INFROMS THAT HE HAS ATTEMPTED TO CONTACT THE PATIENTS SON AND HAS NOT BEEN ABLE TO REACH HIM. CM ATEMPTED TO CONTACT THE PATIENTS SON KADEEM ON BOTH HOME AND CELL PHONE AND HE DID NOT ANSWER OR RETURN CALL. CM LEFT A MESSAGE TO RETURN CALL REGUADING HIS MOTHER AND HER RETURN TO [facility]. JING ALSO CONTACTED AGUSTO AT [facility] TO INFORM OF THIS AND SHE HAD THE SAME NUMBERS FOR THE SON AND STATES THAT THEY ARE ABLE TO ACCEPT THE PATIENT AT DISCHARGE AND WILL ATTEMPT TO REACH THE PATIENTS SON WELL. CM WILL REMAIN AVAILABLE TO ASSIST AND FOLLOW NEEDED.
--- NOTE | 2018-01-02 18:33 | NUR ---
PT PROGRESSING TOWARDS GOALS. REPOSITIONED FOR COMFORT. IVF INFUSING. GOOD APPETITE THIS SHIFT. PATIENT NEEDS COMPLETE ASSIST WITH HER MEALS. CONTINUES TO WEAR O2 AT 4L NC. LOVE DRAINING CLEAR YELLOW URINE TO DEPENDENT DRAIN. BED ALARM ON. CALL LIGHT WITHIN REACH. HOURLY ROUNDING CHARTED. WILL CONTINUE TO MONITOR.
[2018-01-02 20:00] VITALS: BP 169/73
[2018-01-03] VITALS: BP 158/74
[2018-01-03 04:00] VITALS: BP 157/62
--- NOTE | 2018-01-03 05:16 | NUR ---
PT CARE ASSUMED AFTER REPORT. ASSESSMENT COMPLETE. SR ON MONITOR. IVF INFUSING. KATE TO [facility]. PRAFO BOOTS IN PLACE. O2 4L NC. CONTACT PRECAUTIONS IN PLACE. FALL PRECAUTIONS IN PLACE INCLUDING BED ALARM. NO S/S OF PAIN. CALL LIGHT IN REACH. BED IN LOWEST POSITION. NOT PROGRESSING TOWARDS GOALS.
[2018-01-03 06:39] LABS: ABSOLUTE BASOPHILS 0.1 thou/uL (0.0-0.2); ABSOLUTE EOSINOPHILS 0.3 thou/uL (0.0-0.7); ABSOLUTE LYMPHOCYTES 1.7 thou/uL (0.8-5.3); ABSOLUTE MONOCYTES 0.6 thou/uL (0.0-1.2); ABSOLUTE NEUTROPHILS 5.5 thou/uL (1.6-8.1); BASOPHILS 0.6 %; HEMATOCRIT 26.7 % (37.0-47.0); HEMOGLOBIN 8.5 gm/dL (12.0-15.0); LYMPHOCYTES 20.8 %; MCH 24.5 pg (26.0-34.0); MCHC 32.1 g/dL (28.0-37.0); MCV 76.4 fL (80.0-100.0); MONOCYTES 7.4 %; MPV 7.9 fl. (7.2-11.1); NUCLEATED RBCS 0 /100WBC; PLATELET COUNT* 360 thou/uL (150-400); POLYS 67.2 %; RBC 3.49 mil/uL (4.20-5.00); RDW-CV 19.7 % (10.5-14.5); WBC 8.2 thou/uL (4.0-11.0)
[2018-01-03 06:48] LABS: CALCIUM 7.9 mg/dL (8.5-10.1); CREATININE 0.7 mg/dL (0.6-1.3); POTASSIUM 3.8 mmol/L (3.5-5.1); TOTAL BILIRUBIN 0.2 mg/dL (<0.1-1.0); TOTAL PROTEIN 6.2 g/dL (6.4-8.2)
[2018-01-03 07:48] VITALS: BP 179/78
[2018-01-03 12:11] VITALS: BP 156/72
--- NOTE | 2018-01-03 12:44 | NUR ---
RECEIVED PT CARE 0700. PT IS AWAKE/ALERT. NONVERBAL. VSS. DITCHER TRACING SR. PATIENT DOES NOT APPEAR IN ANY RESPIRATORY DISTRESS. DOES NOT APPEAR IN PAIN. AM ASSESSMENT CHARTED. MEDS PER MAR. MEDS CRUSHED AND GIVEN WITH YESSICA THIS AM. IVF INFUSING. PLANNING FOR DC BACK TO SNF THIS AFTERNOON. BED ALARM ON. CALL LIGHT WITHIN REACH. WILL CONTINUE TO MONITOR.
--- NOTE | 2018-01-03 13:47 | NUR ---
Pt discharging back to [facility] today. Spoke with Pt's son, Guicho, about disposition. Son in agreement with hospice at [facility], and wants Pt to be admitted to [facility] hospice. CM contacted [facility] and faxed referral, [facility] will meet Pt's son at [facility] around 430. Pt to dc at 4pm via ambulance. Faxed dc orders. Chart copied. Nurse report number provided,
[2018-01-03 14:35] VITALS: BP 156/72
--- NOTE | 2018-01-03 16:19 | NUR ---
RECEIVED DISCHARGE ORDERS PER DR UNDERWOOD. CONSULTS OK WITH DC TODAY. WOUND CARE COMPLETE PER WOUND RN AND THIS RN. DISCHARGE PICTURES TAKEN. LEFT BUTTOCKS PICTURE NOT RETAKEN. THE AREA TO LEFT BUTTOCKS HEALED AND DID NOT NOTE ANY AREA OF CONCERN ON THE BUTTOCKS. REPORT CALLED TO JUAN CARLOS AT . IV DISCONTINUED. INSTITUTIONAL COMMODITY ANALYST REMOVED AND RETURNED TO NURSE'S DESK. PLAN TO DISCHARGE WITH [facility]. ALL BELONGINGS PACKED AND LEAVING WITH PATIENT. LEAVING VIA AMBULANE. NO QUESTIONS OR CONCERNS AT DISCHARGE.
--- NOTE | 2018-01-03 16:51 | NUR ---
WOUND NURSE: PATIENT SEEN FOR WOUND ASSESSMENT OF LESIONS ON BILATERAL HEELS AND DORSAL FOOT ON LEFT. THESE WERE CLEANSED WITH SOAP AND WATER, RINSED WITH WATER, THEN PATTED DRY . APPLIED OPTIFOAM GENTLE AG TO EACH HEEL, OPTIFOAM GENTLE AG OVER AQUACEL AG TO DORSAL FOOT WOUND ON LEFT. WRAPPED BILATERAL FEET WITH KERLEX AND SECURED WITH TAPE, THEN REAPPLIED HEELMEDIX BOOTS. PATIENT IS BEING DISCHARGED TO HOSPICE TODAY. A C&S OF THE LEFT DORSAL FOOT WOUND WAS TAKEN BY STAFF NURSE CARING FOR PATIENT.
--- NOTE | 2018-01-04 10:39 | CON ---
[facility] [address] [place] [address] CONSULTATION Name: NEALEMILYSHI H Room: [address] IN M.R.#: [id number] Admission: 12/27/17 Attend Phys: Britton Valentine Discharge: 01/03/18 Date of : 30 Report #: [id number] THIS REPORT FOR: //name// CC: Ced Dodd DATE OF SERVICE: 12/27/2017 HISTORY OF PRESENT ILLNESS: This is an 87-year-old female patient who is unable to provide any reliable history. I talked to the nurses looking after this patient. I talked to admitting doctor, Dr. oDdd. I called the patient's son and I have not been able to reach him. The nurses says they have not been able to reach him either. Apparently, this patient had what looks like an acute onset of speech difficulties either 10:00 or 10:30 this morning. It is not clear what her baseline is because I do not have anybody who can tell me. Neurological consultation was requested this afternoon to evaluate this patient and the patient was seen immediately after the consult was received. I am not still able to reach the patient's son and I have called it myself and the nurses are not able to reach either. I reviewed the patient's note from Emergency Room and it does not look like they have too much information on this patient either except this patient has speech difficulty. REVIEW OF SYSTEMS: Only from the records. I am not able to determine the review of systems in this patient. This patient as per record has acute renal failure. Her creatinine is significantly high. Her blood sugar is high. It is not clear whether she had any prior stroke. I carried out the review of system in this patient from the record. One of the record indicated that this patient may have had a DVT and is supposed to be on Coumadin, but that history is not certain and her PT, PTT is normal. She also has a history of hiatus hernia. This is a 14-point review of system I can tell in this patient. Reviewing the medication, it looks like this patient is on Eliquis, but again I cannot confirm that history. PAST MEDICAL HISTORY: Positive for what looks like a DVT and there is a question that she is on anticoagulation. FAMILY HISTORY: Not available. SOCIAL HISTORY: The patient apparently does not smoke or drink any alcohol. PHYSICAL EXAMINATION: Pretty limited. She opens her eyes, but she does not follow commands. That makes it very difficult to examine her. She has no understandable speech at the moment. I cannot tell whether she follow commands or not. She keeps her eyes steady and do not move her eyes when I asked her to move her eyes in multiple directions. I [place] [address] CONSULTATION Name: SHI NEAL Room: [address] IN M.R.#: [id number] Admission: 12/27/17 Attend Phys: Britton Valentine Discharge: 01/03/18 Date of : 30 Report #: [id number] examination because she will not cooperate. She is moderately built individual and I cannot about hearing or vision. Last blood pressure is 90/55, respirations 28, pulse is 93. LABORATORY DATA: RBC is 4.49. Fibrinogen is 522. She does not appear to have any atrial fibrillation. A CT scan of the head was done on admission and that does not show any acute process. IMPRESSION: This patient is very difficult to evaluate. She does not have a bleed, but she could have had a stroke. If she is on anticoagulation that makes it less likely, but does not fully exclude that. If she had a stroke, it happened at 09:30 and that will be about 5-1/2 hour and she is not a candidate for any intervention, especially if she is on anticoagulation and we cannot reach anybody to give us a good history. The further problem in this patient is that her GFR is only 21. If we try to do further investigation in this patient with contrast that is dangerous to a significant degree for renal shutdown. RECOMMENDATIONS: 1. I asked the nurses to continue to try to get hold of the family. 2. We will go ahead and get an MRI of the brain if it can. 3. We will get a carotid Doppler done in this patient. 4. Family need to decide how aggressive they want to be depending upon what kind of quality she had. We will try to continue to get hold of the family and discussed with them and we can reach them. Dr. Villegas will follow up this patient with you from tomorrow. Thank you very much for this referral. <ELECTRONICALLY SIGNED> By: Joey Mcghee MD 01/04/18 1039 1609 [id number] Mcghee MD /nt
--- NOTE | 2018-01-18 09:46 | CON ---
[address] [address] CONSULTATION Name: ÁNGELSHI Ying Room: [address]R.#: [id number] Admission: 12/27/17 Attend Phys: Britton Valentine Discharge: 01/03/18 Date of : 30 Report #: [id number] THIS REPORT FOR: //name// CC: Ced Dodd DATE OF SERVICE: 12/28/2017 REQUESTING PHYSICIAN: Dr. Dodd. REASON FOR CONSULTATION: Acute kidney injury. HISTORY OF PRESENT ILLNESS: The patient is an 87-year-old white female with medical history significant for dementia, history of hypertension, history of bilateral leg DVT and chronic anemia. [facility]. When she was evaluated here, initially the thought was that the patient was having stroke, but now, her altered mental status is thought to be due to her sepsis. She has evidence of cellulitis. Her creatinine was 2.2, potassium 5.3, carbon dioxide 18. Her microbiology blood culture was negative. Foot culture results are pending. Ankle culture results are pending. She was started on IV fluids and IV antibiotics. She was placed on Rocephin and Zithromax. SOCIAL HISTORY: longterm resident. FAMILY HISTORY: Noncontributory. CODE STATUS: The patient's son wants just antibiotics and fluids and does not want any heroic measurements. He does not want any dialysis or central line. REVIEW OF SYSTEMS: Unobtainable due to altered mental status. PHYSICAL EXAMINATION: GENERAL: She is awake, does not follow command. VITAL SIGNS: Blood pressure 120/60, heart rate is 94, temperature 37. HEENT: Pupils are round. NECK: Supple. LUNGS: Decreased air movement. CARDIOVASCULAR: Regular rate. ABDOMEN: Soft. EXTREMITIES: Both legs are swollen, but left leg is with some erythema. LABORATORY DATA: Sodium 135, potassium 5.3, chloride 100, carbon dioxide 18, BUN 39, creatinine 2.2, albumin 2.9, hemoglobin is 10.9, white count [address]300. [place] [address] CONSULTATION Name: MOIRA NEALSol He Room: [address] IN [facility]#: [id number] Admission: 12/27/17 Attend Phys: Britton Valentine Discharge: 01/03/18 Date of : 30 Report #: [id number] She had head CT scan and MRI done. Chest x-ray revealed minimal ____ scarring atelectasis in the left lung base. ASSESSMENT: An 87-year-old female admitted with hypotension, swollen leg and erythema of the left leg consistent with cellulitis, septic picture. Blood cultures are pending. Wound cultures are pending. She has acute kidney injury due to her infection and hypotension. Family does not want any heroic measurements, wanting to be limited to antibiotics and IV fluids, so we will continue that. She is nonoliguric from my standpoint. Continue to monitor her labs. She is not a dialysis candidate. Thank you very much for asking my opinion on acute kidney injury of the patient. <ELECTRONICALLY SIGNED> By: Kevin Spencer MD 01/18/18 0946 [id number] [id number] Spencer MD /nt
== END 2018-01-03 16:25 | disposition hospice, inpatient (51) | DRG 853 ==
LOC: M.ERS 11:10 → M.TBA-ER 13:33 → M.2W 13:33
PROVIDERS: Family Medicine; Internal Medicine; ADMIT Internal Medicine
PROC: 0JBR0ZZ Excision of Left Foot Subcutaneous Tissue and Fascia, Open Approach (ICD-10-PCS; principal; 2017-12-29)
DX: A41.9 Sepsis, unspecified organism (principal); J69.0 Pneumonitis due to inhalation of food and vomit; G93.41 Metabolic encephalopathy; L89.524 Pressure ulcer of left ankle, stage 4; N17.9 Acute kidney failure, unspecified; L03.116 Cellulitis of left lower limb; I10 Essential (primary) hypertension; I27.20 Pulmonary hypertension, unspecified; F03.90 Unspecified dementia, unspecified severity, without behavioral disturbance, psychotic disturbance, mood disturbance, and anxiety; E11.51 Type 2 diabetes mellitus with diabetic peripheral angiopathy without gangrene; I95.9 Hypotension, unspecified; K44.9 Diaphragmatic hernia without obstruction or gangrene; D50.9 Iron deficiency anemia, unspecified; E78.5 Hyperlipidemia, unspecified; Z66 Do not resuscitate; E11.621 Type 2 diabetes mellitus with foot ulcer; L89.620 Pressure ulcer of left heel, unstageable; E03.9 Hypothyroidism, unspecified; Z86.718 Personal history of other venous thrombosis and embolism; Z88.0 Allergy status to penicillin; Z88.7 Allergy status to serum and vaccine; Z79.01 Long term (current) use of anticoagulants